=== PATIENT | male | born 1970 | race Caucasian/White ===

== ENCOUNTER 2019-06-15 08:02 | Outpatient (CLI) | payer OTHER ==
--- NOTE | 2019-06-15 11:17 | MRI ---
LUMBAR SPINE MRI WITHOUT CONTRAST: DATE: 06/15/2019. HISTORY: Low back pain radiating into the right leg/foot, right lower extremity radiculopathy. TECHNIQUE: Multiplanar, multisequence MR imaging of the lumbar spine provided without contrast. FINDINGS: The sagittal STIR imaging demonstrates no focal areas of osseous marrow edema. On the basis of 5 lumbar-type vertebral bodies, conus medullaris terminates at the T12-L1 level. T12-L1: Intervertebral disk height and signal intensity is within normal limits. No significant roxanne tral canal or neural foraminal stenosis. L1-2: Intervertebral disk height and signal intensity within normal limits with no significant centr al canal or neural foraminal stenosis. L2-3: Intervertebral disk height and signal intensity within normal limits with no significant centr al canal or neural foraminal stenosis. L3-4: Mild facet hypertrophy on the left. Intervertebral disk height and signal intensity within no rmal limits with no significant central canal or neural foraminal stenosis. L4-5: There is a disk herniation in the right paracentral region which measures approximately 7 mm i n AP dimension. This results in a moderate degree of right lateral recess stenosis. There is mild b ilateral facet hypertrophy with no significant neural foraminal stenosis on either side. L5-S1: There is disk space narrowing with disk desiccation and mild disk bulge. There is a central annular tear with no significant central canal or neural foraminal stenosis. The visualized retroperitoneal structures demonstrate no acute findings. IMPRESSION: Right paracentral disk herniation at L4-5 with significant associated right lateral recess stenosis. POS: TPC
== END 2019-06-15 08:03 | disposition home or self-care (01) ==
LOC: TBSIIMAG 08:02
PROVIDERS: ATTEND Neurological Surgery
DX: M51.26 Other intervertebral disc displacement, lumbar region (principal); M48.061 Spinal stenosis, lumbar region without neurogenic claudication
CPT/HCPCS: 72148

== ENCOUNTER 2019-07-17 05:36 | Day surgery (SDC) | payer OTHER ==
[2019-07-16 13:47] VITALS: BMI 29.5
[2019-07-17] MEDS ORDERED: Bupivacaine PF 0.5% 30 ML VIAL ONE (06:10)
[2019-07-17] MEDS ORDERED: Thrombin 5000 UNITS/5 ML VIAL ONE (06:10)
[2019-07-17] MEDS ORDERED: EPINEPHrine 1 MG/ML AMP ONE (06:10)
[2019-07-17] MEDS ORDERED: Fentanyl 100 MCG/2 ML VIAL ONE ×5 (06:37→09:25)
[2019-07-17] MEDS ORDERED: Midazolam HCl 2 mg/2 ml Vial ONE (06:37)
[2019-07-17 06:47] LABS: Hemoglobin 14.7 g/dL (14.0-18.0); Mean Corpuscular HGB CONC 34.2 g/dL (32.0-36.0); Mean Corpuscular Hemoglobin 32.6 pg (27.0-31.0); Mean Corpuscular Volume 95.1 fL (78.0-98.0); Mean Platelet Volume 11.8 fL (7.4-10.4); Platelet Count 143 thou/uL (130-400); RBC Distribution Width 11.6 % (11.5-14.5); Red Blood Cell (RBC) Count 4.51 mill/uL (4.70-6.10); White Blood Cell (WBC) Count 7.3 thou/uL (4.8-10.8)
[2019-07-17 06:54] LABS: PTT 32.3 SEC (22.9-36.1); Prothrombin Time 13.1 SEC (12.0-14.7)
[2019-07-17 06:57] LABS: Anion Gap 13 mmol/L (10-20); BUN (Urea Nitrogen) 20 mg/dL (8.9-20.6); Calc. Creatinine Clearance 104 mL/min (70-130); Calcium 9.4 mg/dL (7.8-10.44); Carbon Dioxide 29 mmol/L (22-29); Chloride 103 mmol/L (98-107); Estimated GFR-MDRD 71; Glucose 106 mg/dL (70-105); Potassium 4.2 mmol/L (3.5-5.1); Sodium 141 mmol/L (136-145)
[2019-07-17] MEDS ORDERED: Promethazine HCl 25 MG/ML VIAL IM PRN (08:53)
[2019-07-17] MEDS ORDERED: Promethazine HCl 12.5 MG SUPP PR PRN (08:53)
[2019-07-17] MEDS ORDERED: Bisacodyl 10 MG SUPP PR PRN (08:53)
[2019-07-17] MEDS ORDERED: Mag-Al 1200 mg/1200 mg/30 ML UDCUP PO PRN (08:53)
[2019-07-17] MEDS ORDERED: Acetaminophen 325 MG TAB PO PRN (08:53)
[2019-07-17] MEDS ORDERED: diphenhydrAMINE 25 MG CAP PO PRN (08:53)
[2019-07-17] MEDS ORDERED: Acetaminophen/Codeine 30-300mg Tablet PO PRN ×2 (08:53)
[2019-07-17] MEDS ORDERED: tiZANidine HCl 4 MG TAB PO PRN (08:53)
[2019-07-17] MEDS ORDERED: traMADol HCl 50 MG TAB PO PRN ×2 (08:53)
[2019-07-17] MEDS ORDERED: Promethazine 25 MG TAB PO PRN (08:53)
[2019-07-17] MEDS ORDERED: diphenhydrAMINE 50 MG/ML VIAL IVP PRN (08:53)
[2019-07-17] MEDS ORDERED: Morphine 2 MG/ML SYRINGE SLOW IVP PRN (08:53)
[2019-07-17] MEDS ORDERED: Morphine 4 MG/ML VIAL SLOW IVP PRN (08:53)
[2019-07-17] MEDS ORDERED: Ondansetron PF 4 MG/2 ML Vial IVP PRN (08:53)
[2019-07-17] MEDS ORDERED: Acetaminophen 650 MG Suppository PR PRN (08:53)
[2019-07-17] MEDS ORDERED: Milk Of Magnesia 30 ML UDCUP PO PRN (08:53)
[2019-07-17] MEDS ORDERED: Sodium Chloride 0.9% 1,000 ML IV SCH (09:00)
[2019-07-17] MEDS ORDERED: Scopolamine 1.5 mg/72 hour Patch TD SCH (09:00)
[2019-07-17] MEDS ORDERED: Tamsulosin HCl 0.4 MG CAP ONE (09:13)
[2019-07-17] MEDS ORDERED: diphenhydrAMINE 50 MG/ML VIAL ONE (10:32)
[2019-07-17] MEDS ORDERED: Glycopyrrolate 0.2 MG/ML 5 ML SYRINGE ONE (10:32)
[2019-07-17] MEDS ORDERED: Dexamethasone 20 MG/5 ML VIAL ONE (10:32)
[2019-07-17] MEDS ORDERED: PROPOFOL 200 MG/20 ML VIAL ONE (10:32)
[2019-07-17] MEDS ORDERED: EPHEDRINE 25 MG/5 ML SYRINGE ONE (10:32)
[2019-07-17] MEDS ORDERED: Ondansetron PF 4 MG/2 ML Vial ONE (10:32)
[2019-07-17] MEDS ORDERED: Rocuronium Bromide 10 MG/ML (10ML VIAL) ONE (10:32)
[2019-07-17] MEDS ORDERED: CEFAZOLIN 2 GM in Premix Bag 1 BAG IVPB SCH (14:00)
--- NOTE | 2019-07-17 14:46 | OP ---
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 PREOPERATIVE DIAGNOSIS: Lumbar intervertebral disk herniation, right L4-5 with L5 radiculopathy. POSTOPERATIVE DIAGNOSIS: Lumbar intervertebral disk herniation, right L4-5 with L5 radiculopathy. OPERATIVE PROCEDURE: Right L4-5 partial hemilaminectomy, medial facetectomy, and microdiskectomy and operating microscope. PREOPERATIVE MEDICATION: Ancef 2 g IV. DRAIN NUMBER: Zero. DRAIN TYPE: None. DESCRIPTION OF PROCEDURE: The patient was brought to the operating room. General endotracheal anesthesia was induced. The patient was positioned prone on the operating table with his chest and hips supported by gel-filled chest rolls. A lateral fluoro radiograph was used to plan our incision. The lumbar skin was sterilely prepped and draped. We made our midline incision with a 10 blade knife and we controlled bleeding with bipolar and monopolar cautery. We dissected down to the thoracodorsal fascia. We incised the fascia on the right side of the midline and reflected the paraspinal muscles off the spinous process and lamina of L4 and L5. A self-retaining retractor was placed. A lateral fluoro radiograph confirmed the levels upon which we were operating. We then used the Stille rongeur and Kerrison rongeurs to fashion a partial hemilaminectomy and medial facetectomy. We identified the yellow ligament. We brought the operating microscope into the field. Under microscopic magnification using microsurgical techniques, we removed the remainder of the yellow ligament. We widened our laminectomy defect by performing medial facetectomy. We identified the common thecal sac and the traversing L5 nerve root. Ventral to the nerve root was an intervertebral disk herniation in the ventral epidural space. We gently retracted the nerve root medially and we incised the herniated disk with 11 blade knife. We expressed a significant amount of intervertebral disk through our opening and this was removed in a piecemeal fashion. We then used a blunt hook to sweep for any more loose pieces of disk in the ventral epidural space. Finally, we advanced a pituitary rongeur through the hole in the anulus into the intervertebral space. We removed a few loose fragments of disk, but the remainder of the disk was densely adherent to the endplates and left in place. We irrigated with bacitracin irrigation. We infused local anesthetic in the paraspinal muscles. We closed the wound in anatomical layers. We applied a sterile dressing. This was a clean case, no contamination. Job ID: [id number]
[2019-07-18] MEDS ORDERED: Tamsulosin HCl 0.4 MG CAP PO SCH (06:00)
--- NOTE | 2019-07-18 09:01 | HP ---
CHIEF COMPLAINT: "I'm here for back surgery." HISTORY OF PRESENT ILLNESS: Mr. Romero is a 49-year-old male with lower back pain and right leg pain. For last year, he has entrained chiropractor manipulation, injections, and traction and inversion table. All these provided him some relief, but had proven temporary. Pain comes from the back, radiates to the posterior gluteal area around the posterolateral thigh to the lateral calf and sometimes onto the foot. With prolonged standing, the foot goes numb. When he sits, it seems to get better. There is very minimal leg symptoms if any. There is no bowel or bladder dysfunction. PAST MEDICAL HISTORY: Hypertension. PAST SURGICAL HISTORY: No surgeries. MEDICATIONS: 1. Lisinopril. 2. Hydrochlorothiazide. ALLERGIES: NO KNOWN DRUG ALLERGIES. FAMILY HISTORY: The patient's parents are both alive. Father has heart disease and stroke. His mother has diabetes, heart disease, and stroke. He has children alive and well. SOCIAL HISTORY: Mr. Romero is a smoker. He does not use illicit drugs. He occasionally has an alcoholic beverage. 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 He lives at home with his . VITAL SIGNS: His height is 69 inches, weight is 200 pounds. REVIEW OF SYSTEMS: CONSTITUTIONAL: Denies fever or chills. ENT: Denies change in vision or hearing. CARDIAC: Denies chest pain, shortness of breath, or diaphoresis. PULMONARY: Denies shortness of breath, cough, or hemoptysis. GI: Denies abdominal pain, nausea, vomiting, diarrhea, change in stools formation, or inconsistency. : Denies trouble with urination, frequency of urination, or bloody urine. SKIN: Denies skin rash, bruising, bleeding, or skin masses. MUSCULOSKELETAL: As per the history of present illness. NEUROLOGIC: As per the history of present illness. PSYCHOLOGIC: Denies anxiety, depression, personality changes, or crying. PHYSICAL EXAMINATION: HEENT: Pupils are equal. NECK: Normal, soft, and supple. No masses are noted. ROM is intact and nonpainful. NEUROLOGIC: Awake, alert, and oriented x3. Memory, attention, fund of knowledge, and language are normal. Cranial nerves 2 through 3 grossly intact. Lower extremity, there is no loss of strength in the iliopsoas, quadriceps, hamstrings , anterior tib, EHL, gastroc, or the toe flexors. There is no area of dermatomal sensory loss. The reflexes are normal and symmetric at the knees and ankles. The toes are downgoing. There is no clonus. Straight leg raise is markedly positive on the right side. IMAGING AND FINDINGS: MRI showed intervertebral disk protrusion with herniation on the right at L4-5 stretching the L5 nerve root. It does not show lumbosacral junction very well. There does not seem to be other disk disease. The x-ray, no change in the alignment as seen on flexion or extension. IMPRESSION: 1. Right L5 radiculopathy from the intervertebral disk disease. 2. Microdissection right L4-5. INFORMED CONSENT: Discussed indications, risks, benefits, alternatives, and expected results from surgery. The risks discussed included, but were not limited to, bleeding, infection, CSF leak, nerve damage, cauda equina injury, paralysis, incontinence, wheelchair dependency, major blood vessel injury, cardiopulmonary complications of anesthesia, and . Long-term risks include spinal instability and need for further surgery. The patient understands the risk and is willing to proceed. Job ID: [id number] [facility]
== END 2019-07-17 12:12 | disposition home or self-care (01) ==
LOC: SDC 05:36
PROVIDERS: ATTEND Neurological Surgery
PROC: 01NB0ZZ Release Lumbar Nerve, Open Approach (ICD-10-PCS; principal; 2019-07-17)
DX: M51.16 Intervertebral disc disorders with radiculopathy, lumbar region (principal); I10 Essential (primary) hypertension; F17.210 Nicotine dependence, cigarettes, uncomplicated; Z79.899 Other long term (current) drug therapy
CPT/HCPCS: 36415; 76000; 80048; 85027; 85610; 85730; J0171; J0690; J2250; J3010; J3370; J3490; S0020